=== PATIENT | female | born 1960 | race Caucasian/White ===

== ENCOUNTER 2020-03-10 09:44 | Outpatient (CLI) | payer MEDICARE, MEDICAID, SELFPAY ==
--- NOTE | 2020-03-10 10:05 | XR_ITS ---
WS: [id number] Cervical spine, 5 views, 03/10/2020 Clinical Data: RADICULOPATHY,CERVICAL REGION Comparison: None. Findings: No compression fractures are seen. The disc heights are normal. The oblique films demonstra te minimal foraminal narrowing at C4-C5 bilaterally and on the left at C5-C6. There is no prevertebra l soft tissue swelling. The odontoid is unremarkable. The soft tissues of the neck and the lung apice s are normal. XR/XR cervical spine 4-5V [id number] Impression: Minimal mid cervical foraminal narrowing.
== END 2020-03-10 09:45 | disposition home or self-care (01) ==
LOC: RAD 09:49
PROVIDERS: PCP Family Medicine; Visit Provider Family Medicine
DX: M54.12 Radiculopathy, cervical region (principal)
CPT/HCPCS: 72050

== ENCOUNTER 2020-03-18 08:34 | Outpatient (CLI) | payer MEDICARE, MEDICAID, SELFPAY ==
--- NOTE | 2020-03-18 08:45 | MR_ITS ---
WS: [id number] MRI CERVICAL SPINE NONCONTRAST TECHNIQUE: Sagittal T1, T2 and STIR imaging. Axial T2, gradient, and fiesta imaging. CLINICAL INFORMATION: CERVICAL RADICULOPATHY COMPARISON: MRI FINDINGS: Straightening of the normal cervical lordosis. No high-grade central canal narrowing. Cord signal is normal. C2-C3: Normal. C3-C4: Normal. C4-C5: Mild disc osteophytic ridging. Mild facet arthropathy. Mild left and no significant right fora david narrowing. Spinal canal is patent. C5-C6: Disc osteophyte complex with endplate ridging. Mild central canal stenosis. Moderate left and mild right bony foraminal narrowing. Mild facet arthropathy. C6-C7: Disc osteophytic ridging eccentric to the left. Moderate left and mild right foraminal narrowi ng. Mild central canal stenosis. Spinal canal is patent. Mild facet arthropathy. C7-T1: Normal Tiny central protrusions upper thoracic spine at T2-3 and T3-4. Visualized brain stem structures: Normal. Prevertebral soft tissues: Normal. MR/MR cervical spin wo con* [id number] IMPRESSION: 1. Straightening of the normal cervical lordosis. Cord signal is normal. 2. Mild disc bulging worse at C5-C6 and C6-C7 with mild central canal stenosis unchanged. 3. Moderate left C5-C6 and left C6-C7 foraminal narrowing. 4. Mild facet arthropathy in the mid cervical spine at C5-C6 worse in the left . 5. Tiny shallow central protrusions in the upper thoracic spine at T2-3 and T3 -T4. 6. No significant changes since .
== END 2020-03-18 08:35 | disposition home or self-care (01) ==
LOC: RADWPI 08:41
PROVIDERS: PCP Family Medicine; Visit Provider Family Medicine
DX: M54.12 Radiculopathy, cervical region (principal); M48.02 Spinal stenosis, cervical region; M47.892 Other spondylosis, cervical region; M50.20 Other cervical disc displacement, unspecified cervical region; M51.24 Other intervertebral disc displacement, thoracic region
CPT/HCPCS: 72141

== ENCOUNTER 2020-04-07 13:36 | Outpatient (CLI) | payer MEDICARE, MEDICAID, SELFPAY ==
--- NOTE | 2020-04-07 13:43 | XR_ITS ---
WS: [id number] LUMBAR SPINE: 3 VIEWS TECHNIQUE: AP, lateral and L5-S1 spot. HISTORY: LOW BACK PAIN, SCIATICA COMPARISON: None available. Very mild increase in the lumbar lordosis and RIGHT convex curvature. Lumbar vertebral body heights i ntact. Minimal anterolisthesis of L4 by 2 mm. No fracture. Minimal disc space narrowing at L5-S1. Dif fuse osteopenia. Facet joint arthritis is moderate at L4-5 and L5-S1. SI joints are symmetric bilaterally. No soft tissue abnormalities. Prior cholecystectomy. XR/XR lumbar spine 2-3V* [id number] IMPRESSION: 1. Mild increase in lumbar lordosis with no fracture. 2. Osteopenia. 3. Moderate facet joint arthritis at L4-5 and L5-S1.
--- NOTE | 2020-04-07 13:43 | XR_ITS ---
WS: [id number] THORACIC SPINE TECHNIQUE: AP and lateral views are performed. HISTORY: LOW BACK PAIN, SCIATICA COMPARISON: None available. Mild LEFT convex curvature mid thoracic spine. Pedicles are all identified. There is slight increase in the thoracic kyphosis. Multilevel mild disc space narrowing and endplate irregularities. No fractu res. Marginal osteophytes are most significant towards the RIGHT at T7-T9. Numerous surgical sutures are noted in the LEFT upper abdomen and also prior cholecystectomy. XR/XR thoracic spine 3V* [id number] IMPRESSION: 1. Increase in thoracic kyphosis and LEFT convex curvature. 2. Mild to moderate spondylosis, most significant from T7 to T9. No fracture.
== END 2020-04-07 13:37 | disposition home or self-care (01) ==
LOC: WPI 13:39
PROVIDERS: PCP Family Medicine; Visit Provider Family Medicine
DX: M54.30 Sciatica, unspecified side (principal); M40.204 Unspecified kyphosis, thoracic region; M47.814 Spondylosis without myelopathy or radiculopathy, thoracic region; M85.88 Other specified disorders of bone density and structure, other site; M47.816 Spondylosis without myelopathy or radiculopathy, lumbar region; M47.817 Spondylosis without myelopathy or radiculopathy, lumbosacral region
CPT/HCPCS: 72072; 72100

== ENCOUNTER → 2020-05-02 09:30 | Outpatient (BNVA) | payer MEDICARE, MEDICAID, SELFPAY | PROVIDERS: PCP Family Medicine; Referring Provider Family Medicine; Visit Provider Anesthesiology Pain Medicine | DX: G89.29 Other chronic pain (principal); G56.20 Lesion of ulnar nerve, unspecified upper limb; M54.2 Cervicalgia; M54.9 Dorsalgia, unspecified; M19.011 Primary osteoarthritis, right shoulder; F17.210 Nicotine dependence, cigarettes, uncomplicated | CPT/HCPCS: 99205 ==

== ENCOUNTER 2020-06-03 14:30 | Outpatient (CLI) | payer MEDICARE, MEDICAID, SELFPAY ==
--- NOTE | 2020-06-03 15:15 | MR_ITS ---
WS: [id number] MRI RIGHT SHOULDER NONCONTRAST TECHNIQUE: Sagittal T2, coronal T1, T2 and proton density imaging. Axial gradient PDE imaging. CLINICAL INFORMATION: M12.819 - Other specific arthropathies, not elsewhere classified, unspecified s [place] COMPARISON: None. FINDINGS: Moderate degenerative arthritis at the AC joint. Mild edema. Mild downsloping acromion. Slight subacr omial spurring. Tendinopathy in the distal supraspinatus. Chronic thinning of the supraspinatus and i nfraspinatus. Tiny intrasubstance tear in the distal supraspinatus near the insertion. No full-thickn ess rotator cuff tears. Normal subscapularis. Normal teres minor. Biceps tendon is not visualized in the bicipital groove and likely chronically torn. Degenerative fraying of the glenoid labrum. Moderate degenerative narrowing glenohumeral joint. Degen erative changes at the greater tuberosity. MR/MR shoulder RT wo con* [id number] IMPRESSION: 1. Moderate degenerative arthritis at the AC joint with mild downsloping acrom ion. Mild edema at the AC joint. 2. Chronic thinning of the distal infraspinatus and supraspinatus. 3. Tendinopathy in the distal supraspinatus with a small intrasubstance tear d istally near the insertion. 4. No full-thickness rotator cuff tears. 5. Absent biceps tendon in the bicipital groove presumably chronically torn. 6. Degenerative fraying of the glenoid labrum.
== END 2020-06-03 14:31 | disposition home or self-care (01) ==
LOC: RADSHAW 14:34
PROVIDERS: PCP Family Medicine; Visit Provider Anesthesiology Pain Medicine
DX: M19.011 Primary osteoarthritis, right shoulder (principal); R60.1 Generalized edema; M62.89 Other specified disorders of muscle
CPT/HCPCS: 73221

== ENCOUNTER → 2020-06-09 10:09 | Outpatient (BNVA) | payer MEDICARE, MEDICAID, SELFPAY | PROVIDERS: PCP Family Medicine; Visit Provider Anesthesiology Pain Medicine | DX: G89.29 Other chronic pain (principal); M54.41 Lumbago with sciatica, right side; M54.2 Cervicalgia; G56.21 Lesion of ulnar nerve, right upper limb; M19.011 Primary osteoarthritis, right shoulder; M54.9 Dorsalgia, unspecified | CPT/HCPCS: 99214 ==

== ENCOUNTER → 2020-08-19 09:10 | Outpatient (BNVA) | payer MEDICARE, MEDICAID, SELFPAY | PROVIDERS: PCP Family Medicine; Visit Provider Anesthesiology Pain Medicine | DX: G89.29 Other chronic pain (principal); M79.18 Myalgia, other site; M54.2 Cervicalgia; M19.011 Primary osteoarthritis, right shoulder; M54.9 Dorsalgia, unspecified; G56.20 Lesion of ulnar nerve, unspecified upper limb | CPT/HCPCS: 20553; 99214; J1030; J3490 ==

== ENCOUNTER → 2020-09-09 08:03 | Outpatient (BNVA) | payer MEDICARE, MEDICAID, SELFPAY | PROVIDERS: PCP Family Medicine; Visit Provider Anesthesiology Pain Medicine | DX: G89.29 Other chronic pain (principal); M79.18 Myalgia, other site; M54.2 Cervicalgia; M19.019 Primary osteoarthritis, unspecified shoulder; M54.9 Dorsalgia, unspecified; G56.20 Lesion of ulnar nerve, unspecified upper limb | CPT/HCPCS: 20553; 99214 ==

== ENCOUNTER → 2020-09-26 14:27 | Outpatient (BNVA) | payer MEDICARE, MEDICAID, SELFPAY | PROVIDERS: PCP Family Medicine; Referring Provider Anesthesiology Pain Medicine; Visit Provider Specialist | DX: M19.011 Primary osteoarthritis, right shoulder (principal) | CPT/HCPCS: 73030 ==

== ENCOUNTER → 2020-10-13 08:45 | Outpatient (BNVA) | payer MEDICARE, MEDICAID, SELFPAY | PROVIDERS: PCP Family Medicine; Visit Provider Anesthesiology Pain Medicine | DX: G89.29 Other chronic pain (principal); M54.9 Dorsalgia, unspecified; M54.2 Cervicalgia; M19.011 Primary osteoarthritis, right shoulder; G56.20 Lesion of ulnar nerve, unspecified upper limb | CPT/HCPCS: 99214 ==

== ENCOUNTER 2020-11-04 08:28 | Outpatient (CLI) | payer MEDICARE, MEDICAID, SELFPAY ==
--- NOTE | 2020-11-04 08:42 | XR_ITS ---
WS: [id number] Right foot, 3 views, 11/04/2020 Clinical Data: UNSPECIFIED FX BROKEN TOE/CLOSED FX Comparison: None. Findings: There is a fracture of the distal aspect of the right fourth toe proximal phalanx. No displacement is seen. No bone destruction or erosion is noted. The joint spaces and soft tissues are normal. XR/XR foot RT min 3V* [id number] Impression: Probable fracture of distal portion of right fourth toe proximal phalanx.
== END 2020-11-04 08:29 | disposition home or self-care (01) ==
PROVIDERS: PCP Family Medicine; Visit Provider Family Medicine
DX: S92.911A Unspecified fracture of right toe(s), initial encounter for closed fracture (principal); X58.XXXA Exposure to other specified factors, initial encounter
CPT/HCPCS: 73630

== ENCOUNTER 2021-01-24 11:05 | Outpatient (CLI) | payer MEDICARE, MEDICAID, SELFPAY ==
[2021-01-24 12:06] VITALS: BMI 37.3
--- NOTE | 2021-01-24 12:18 | ECG_ITS ---
[facility] Test Date: 2021-01-24 Pat Name: Kris Arana Department: Room: Gender: Female Dog Breeder: : 1960 Requested By: Anna Brewster Order Number: [id number] Socrates MD: ANNA BREWSTER Interpretive Statements NAME OF STUDY: TREADMILL STRESS TEST INDICATION: Conduction Disorder FOR CHRONOTROPIC INCOMPETENCE; MAXIMAL EFFORT OBTAINED DUE TO SHORTNESS OF BREATH AND LEG FATIGE HAD TO ABORT EXERCISE DATA: The patient was exercised by Hammad protocol. Baseline heart rate was 48 beats per minute. Baseline blood pressure was 131/66 millimeters of mercury. Target heart rate was 159 beats per minute. Maximum heart rate achieved was 99, which was 62 % of the target heart rate. Maximum blood pressure was 210/83 millimeters of mercury. Total exercise time was 3-minute. Maximum METs achieved was 4.6, maximum VO2 was 16.1. The reason for ending the test was due to maximal effort achieved. The patient complained of fatigue and shortness of during the stress test, which then resolved at the end of the test. ELECTROCARDIOGRAM: BASELINE: Sinus bradycardia, normal axis, interventricular conduction delay, no significant ST-T changes at the baseline noted. EXERCISE: At the peak exercise level, no significant ST-T changes suggestive of ischemia noted. RECOVERY: During the recovery period, heart rate dropped appropriately. No significant ST-T changes in the recovery suggestive of ischemia noted. CONCLUSION: 1. Exercise capacity poor. 2. Heart rate response was not appropriate. 3. Blood pressure response was hypertension. 4. Symptoms not suggestive of ischemia. 5. Electrocardiogram portion of the stress test was not suggestive of ischemia. 6. Nuclear scan will be documented separately. Please note that due to under achievement of METs, low exercise capacity and submaximal heart rate specificity and sensitivity of the EKG portion of stress test will be low and not reliable Electronically Signed On 01-24-2021 20:31:38 CDT by ANNA BREWSTER [email or web address]
[2021-01-24 13:30] VITALS: BP 136/84; PULSE 54
== END 2021-01-24 11:06 | disposition home or self-care (01) ==
LOC: CDL 11:08
PROVIDERS: PCP Family Medicine; Visit Provider Internal Medicine Cardiovascular Disease
DX: I45.9 Conduction disorder, unspecified (principal)
CPT/HCPCS: 93017

== ENCOUNTER → 2021-04-25 09:37 | Outpatient (BNVA) | payer MEDICARE, MEDICAID, SELFPAY | PROVIDERS: PCP Family Medicine; Visit Provider Anesthesiology Pain Medicine | DX: G89.29 Other chronic pain (principal); M54.2 Cervicalgia; M19.011 Primary osteoarthritis, right shoulder; G56.23 Lesion of ulnar nerve, bilateral upper limbs; F17.210 Nicotine dependence, cigarettes, uncomplicated | CPT/HCPCS: 99214 ==

== ENCOUNTER → 2021-05-02 14:00 | Day surgery (SDC) | payer MEDICARE, MEDICAID, SELFPAY ==
[2021-05-02 14:15] VITALS: BP 131/62; PULSE 59; RESP 18; TEMP 36.3; O2SAT 97
[2021-05-02] MEDS: ferric carboxy (IVPB) 750 MG in sodium chloride 0.9% (100 ml) 100 ML 345 MG IV (14:37)
== END ==
PROVIDERS: PCP Family Medicine; Visit Provider Family Medicine
DX: E61.1 Iron deficiency (principal)
CPT/HCPCS: 96365; J1439

== ENCOUNTER → 2021-05-09 06:31 | Day surgery (SDC) | payer MEDICARE, MEDICAID, SELFPAY ==
[2021-05-09 06:40] VITALS: BP 118/52; PULSE 45; RESP 18; TEMP 36.2; O2SAT 98; BMI 36.9
[2021-05-09] MEDS: ferric carboxy (IVPB) 750 MG in sodium chloride 0.9% (100 ml) 100 ML 300 MG IV (06:52)
== END ==
PROVIDERS: PCP Family Medicine; Visit Provider Family Medicine
DX: E61.1 Iron deficiency (principal)
CPT/HCPCS: 96365; J1439

== ENCOUNTER 2021-11-07 09:23 | Outpatient (CLI) | payer MEDICARE, MEDICAID, SELFPAY ==
--- NOTE | 2021-11-07 09:38 | MM_ITS ---
WS: [id number] BILATERAL DIAGNOSTIC DIGITAL BREAST TOMOSYNTHESIS MAMMOGRAM WITH CAD HISTORY: HX OF BREAST CA COMPARISON: 09/28/2014, 02/22/2017 Bilateral CC and MLO views with tomosynthesis and synthetic mammography submitted. Computer aided det ection analyzed. Breast composition: There are scattered areas of fibroglandular density. No suspicious masses, microc alcifications or architectural distortion. No change in appearance of the breasts since the prior marisol dies. There is mild volume loss and scarring in the anterior RIGHT breast. Biopsy clip upper outer qu adrant LEFT breast. No recurrent mass or calcifications. MM/[place] [id number] IMPRESSION: BI-RADS: 2-Benign FOLLOW UP: 1 Year Follow-up
== END 2021-11-07 09:24 | disposition home or self-care (01) ==
LOC: RADSHAW 09:25
PROVIDERS: PCP Family Medicine; Visit Provider Family Medicine
DX: Z85.3 Personal history of malignant neoplasm of breast (principal)
CPT/HCPCS: 77062

== ENCOUNTER → 2021-11-14 11:27 | Outpatient (BNVA) | payer MEDICARE, MEDICAID, SELFPAY | PROVIDERS: PCP Family Medicine; Visit Provider Internal Medicine Cardiovascular Disease | DX: R00.1 Bradycardia, unspecified (principal); I95.1 Orthostatic hypotension; R42 Dizziness and giddiness; I47.1 Supraventricular tachycardia; F17.200 Nicotine dependence, unspecified, uncomplicated | CPT/HCPCS: 93005; 99214 ==

== ENCOUNTER → 2021-11-28 12:53 | Outpatient (BNVA) | payer MEDICARE, MEDICAID, SELFPAY | PROVIDERS: PCP Family Medicine; Visit Provider Internal Medicine Cardiovascular Disease | DX: R55 Syncope and collapse (principal); R00.1 Bradycardia, unspecified | CPT/HCPCS: 93229 ==

== ENCOUNTER → 2022-01-25 14:02 | Outpatient (BNVA) | payer MEDICARE, MEDICAID, SELFPAY | PROVIDERS: PCP Family Medicine; Visit Provider Internal Medicine Cardiovascular Disease | DX: R00.1 Bradycardia, unspecified (principal); I95.0 Idiopathic hypotension; R42 Dizziness and giddiness; E03.9 Hypothyroidism, unspecified; F17.200 Nicotine dependence, unspecified, uncomplicated; I95.1 Orthostatic hypotension | CPT/HCPCS: 99214 ==

== ENCOUNTER 2022-05-04 13:01 | Outpatient (CLI) | payer MEDICARE, MEDICAID, SELFPAY ==
--- NOTE | 2022-05-04 13:00 | USCV_ITS ---
Kris Arana Age: 61 Gender: F : 1960 Exam Date: 05/04/2022 13:14 Ordering Phys: Latanya Pearson MD ([email or web address]) Technologist: Cuca Maharaj Exam Location: [facility] [place] Indication: Pre op in 3 days BP: 120 / 62 HR: 58 Rhythm: Sinus Technical Quality: Adequate MEASUREMENTS (Male / Female) Normal Values 2D ECHO LV Diastolic Diameter PLAX 4.2 cm 4.2 - 5.9 / 3.9 - 5.3 cm LV Systolic Diameter PLAX 2.1 cm IVS Diastolic Thickness 1.3 cm 0.6 - 1.0 / 0.6 - 0.9 cm IVS Systolic Thickness 1.8 cm LVPW Diastolic Thickness 1.0 cm 0.6 - 1.0 / 0.6 - 0.9 cm LVPW Systolic Thickness 1.4 cm LVOT Diameter 2.1 cm LV Ejection Fraction 2D Teich 80.7 % LV Ejection Fraction MOD 2C 72.4 % LV Ejection Fraction 2C AL 73.5 % LA Diameter 3.2 cm LA Width 4.0 cm LA Height 5.8 cm RA Width 3.3 cm RA Height 5.0 cm Aorta at Sinotubular Diameter 2.9 cm IVC Diameter 2.1 cm M-MODE MV E Point Septal Separation 0.2 cm DOPPLER AV Peak Velocity 180.0 cm/s LVOT Peak Velocity 135.0 cm/s AV Area Cont Eq vti 2.9 cm squared AV Area Cont Eq pk 2.5 cm squared MV Peak Velocity 113.0 cm/s MV Area PHT 2.0 cm squared Mitral E to A Ratio 0.6 MV E' Velocity 34.0 cm/s Mitral E to MV E' Ratio 4.4 Mitral E to LV E' Lateral Ratio 3.9 Mitral E to LV E' Septal Ratio 5.1 TR Peak Velocity 182.8 cm/s TR Peak Gradient 13.4 mmHg Right Atrial Pressure 3.0 mmHg Pulmonary Artery Systolic Pressu 16.4 mmHg PV Peak Velocity 108.0 cm/s RV Acceleration Time 0.1 s RV Ejection Time 0.3 s RV AcT/ET 0.2 FINDINGS Left Ventricle Normal left ventricular size and systolic function, EF 74 %. No regional wall motion abnormalities. Grade I/IV diastolic dysfunction (abnormal relaxation filling pattern), normal to mildly elevated filling pressures. Mild left ventricular hypertrophy. Right Ventricle The right ventricle is normal in size and function. Right Atrium The right atrium is normal in size. Left Atrium The left atrium is normal in size. Mitral Valve No gross abnormalities noted Aortic Valve No gross abnormalities noted Tricuspid Valve No gross abnormalities noted Pulmonic Valve Pulmonic valve not well visualized. Pericardium Normal pericardium without effusion. Aorta Normal ascending aorta dimension. IVC The inferior vena cava appears normal. CONCLUSIONS Normal left ventricular size and systolic function, EF 74 %. No regional wall motion abnormalities. Grade I/IV diastolic dysfunction (abnormal relaxation filling pattern), normal to mildly elevated filling pressures. Mild left ventricular hypertrophy. Normal cardiac chamber sizes. No significant stenotic or regurgitant lesions There is no pericardial effusion. There are no intracardiac masses. No similar previous studies are available for comparison Dr Latanya Pearson MD FACC (Electronically Signed) Final Date: 04 May 2022 18:37 S
== END 2022-05-04 13:02 | disposition home or self-care (01) ==
LOC: RAD 13:02
PROVIDERS: PCP Family Medicine; Visit Provider Internal Medicine Cardiovascular Disease
DX: I95.1 Orthostatic hypotension (principal); R42 Dizziness and giddiness; R06.09 Other forms of dyspnea; Z95.0 Presence of cardiac pacemaker
CPT/HCPCS: 80048; 85025; 85610; 86850; 86900; 93306; 99214

== ENCOUNTER 2022-05-07 06:09 | Outpatient (CLI) | payer MEDICARE, MEDICAID, SELFPAY ==
--- NOTE | 2022-05-07 06:43 | XRR_ITS ---
PROCEDURE INFORMATION: Exam: XR Chest Exam date and time: 05/07/2022 6:33 AM Age: 61 years old Clinical indication: Pre-operative exam; Cardiovascular screening and respiratory screening exam; Additional info: Pre pacemaker insertion TECHNIQUE: Imaging protocol: Radiologic exam of the chest. Views: 2 views. COMPARISON: CR XR chest 1V [id number] 07/17/2016 8:41 PM FINDINGS: Lungs: Unremarkable. No consolidation. Pleural spaces: Unremarkable. No pleural effusion. No pneumothorax. Heart/Mediastinum: Unremarkable. No cardiomegaly. Bones/joints: Unremarkable. XR/XR chest 2V* [id number] IMPRESSION: No acute findings.
[2022-05-07 06:56] VITALS: BP 120/65; PULSE 49; RESP 16; TEMP 37.1; O2SAT 98; BMI 36.8
--- NOTE | 2022-05-07 06:59 | SUR.PREOP ---
Patient has MS. She states that most days she gets around independently. When she has an MS flare up she has to use a cane, walker or wheelchair depending on the severity of the flare up. She ambulated into the hospital independently this AM with no asist devices.
--- NOTE | 2022-05-07 07:05 | P.HPUD_ITS ---
Surgery/Procedure H&P Update DATE OF PROCEDURE: May 07, 2022 DATE H&P PERFORMED: 05/03/22 H&P UPDATE INFORMATION: I have reviewed H&P completed within last 30 days, I have examined patient prior to procedure and No changes to prior documentation PREOP DIAGNOSIS: symptomatic bradycardia/ sinus node dysfunction PRIMARY INDICATION FOR PROCEDURE: episodes of syncope/ near syncope PLANNED PROCEDURE: Operation Date: 05/07/22 07:00 Proposed Procedures p Pacemaker Insertion 99105,R00.1(Not Applicable) - Latanya Pearson MD PATIENT REASSESSED PRIOR TO SEDATION, WITH NO CHANGE NOTED: Yes PHYSICAL EXAM: alert, oriented x 3, clear to auscultation bilaterally and r egular rate & rhythm AIRWAY EVAL/ANESTHESIA PLAN: normal airway, see other exam findings, ASA II, Monitored Anesthesia, Local Anesthesia, Risks, benefits & alternatives of mary tion and/or procedure discussed and Patient agrees to continue as planned
--- NOTE | 2022-05-07 09:50 | PM.OP ---
Operative Report Date of procedure: May 07, 2022 Pre-op diagnosis: Preop Diagnosis symptomatic bradycardia/ sinus node dysfunction Procedure: LOCATION: Outpatient PREOPERATIVE DIAGNOSES: Symptomatic bradycardia/sinus manuel dysfunction POSTOPERATIVE DIAGNOSES: Same. COMPLICATIONS: None. ESTIMATED BLOOD LOSS: Around 5 milliliters. BRIEF HISTORY: 61-year-old white female with a history of palpitation, near syncopal and syncopal episodes was found to have episodes of symptomatic sinus bradycardia on the monitor with a heart rate in the 40s. Her features are consistent with a sinus manuel dysfunction. For further management of her condition, a permanent pacemaker implantation was recommended. A dual chamber permanent pacemaker implantation was recommended for AV synchrony and symptom relief The procedure was explained to the patient in detail with the risks and benefits. The risks of bleeding, hematoma, vascular injury, infection, pneumothorax, myocardial perforation and other concomitant complications were explained in detail, which the patient understood well and consented to proceed. PROCEDURE DESCRIPTION: The patient was brought to the Cardiac Catheterization Lab. The left and the right side of the neck and the subclavian area were cleaned and draped in a sterile fashion. 1% Xylocaine was used as the local anesthetic agent. Left subclavian venogram was performed by injecting 20 milliliters of Omnipaque through the left antecubital vein. A left subclavian venous access was obtained using a micropuncture needle system, under venographic guidance. . A two-inch long incision was made 2.0 centimeters below the midclavicular region. By sharp and blunt dissection, a pacemaker pocket was made. A second venous access was obtained using another micropuncture needle system. Over the first guidewire, a 7-Thai venous sheath with dilator was advanced. The venous dilator and the guidewire were taken out. A screw-in ventricular lead was advanced through the venous sheath and was positioned towards the right ventricle. Under fluoroscopic guidance, the ventricular lead was positioned toward the right ventricular apex. Good pacing and sensing thresholds were obtained. The lead was secured to the endocardium by advancing the helix. The stability of the lead was tested by gentle twisting movements and also by asking the patient to take some deep breaths and cough. The venous sheath was peeled off, at this time. The lead was secured to the pectoralis fascia, by suturing with 1-0 Surgilon. Over the second guidewire, another 7-Thai venous sheath with dilator was advanced. The dilator and the guidewire were taken out. Under fluoroscopic guidance, an atrial lead (Medtronic), was advanced and positioned toward the right atrium. The lead was positioned in the right atrial appendage. Good pacing and sensing thresholds were obtained. The lead was secured to the endocardium by advancing the helix. Stability of the lead was tested by gentle twisting movements and also by asking the patient to take some deep breaths and cough. The venous sheath was peeled off, at this time. The lead was secured to the pectoralis fascia by suturing with 0-Surgilon. The pacemaker pocket was copiously irrigated with vancomycin solution. Complete hemostasis was achieved. Sponge counts were confirmed. The leads were attached to a Medtronic generator. The leads were positioned behind the generator and the generator was attached to the pectoralis fascia by suturing with 0-Surgilon. The pocket was closed in layers. Skin was approximated using 4-0 Vicryl. IMPLANTED DEVICES: ATRIAL LEAD: Model number: 5076/45 Serial number: [id number] Make: Medtronic VENTRICULAR LEAD: Model number: 5076/52 Serial number: [id number] Make: Medtronic GENERATOR Brand: [place] XT DR MRI Surescan Model number: W1 DR 01 Serial number: [id number] Make: Medtronic IMPLANTATION DATA: With the pacing system analyzer, the R wave sensing was 9.8 millivolts with a lead impedance of 722 and a pacing threshold was volts at 0.4 milliseconds. In the atrium, the sensing was 1.8 millivolts with a lead impedance of 456 ohms and a pacing threshold was 0.75 volts at 0.4 milliseconds. Through the device, the R-wave sensing was 12.1 millivolts with a lead impedance of 703 and a pacing threshold was 0.5 volts at 0.4 milliseconds. The atrial sensing was 2.4 millivolts with a lead impedance of 475 ohms and a pacing threshold of 0.75 volts at 0.4 milliseconds. The pacemaker was set for AAIR/DDDR mode with upper rate of 130 and a lower rate of 60. A pressure dressing was applied over the pacemaker site. The patient was transferred to the Medical Floor in stable condition. A chest x-ray was ordered to confirm the lead position and also to rule out any pneumothorax.
[2022-05-07 11:29] VITALS: BP 116/60; PULSE 61; RESP 15; TEMP 36.6; O2SAT 93
[2022-05-07] MEDS: levothyroxine 100 mcg Tablet PO (12:33)
[2022-05-07] MEDS: aspirin 81 mg EC Tablet PO (12:34)
[2022-05-07] MEDS: acyclovir 400 mg Tablet PO (12:34)
--- NOTE | 2022-05-07 15:00 | XRR_ITS ---
PROCEDURE INFORMATION: Exam: XR Chest Exam date and time: 05/07/2022 4:05 PM Age: 61 years old Clinical indication: Device placement; Cardiac pacemaker placement or adjustment; Prior surgery; Additional info: Post permanent pacemaker placement; Visualize lead tip TECHNIQUE: Imaging protocol: Radiologic exam of the chest. Views: 1 view. COMPARISON: CR XR chest 2V* [id number] 05/07/2022 6:33 AM FINDINGS: Tubes, catheters and devices: Two lead pacer device noted in the left chest wall. Lungs: Unremarkable. No consolidation. Pleural spaces: Unremarkable. No pleural effusion. No pneumothorax. Heart/Mediastinum: Unremarkable. No cardiomegaly. Bones/joints: Unremarkable. XR/XR chest 1V [id number] IMPRESSION: No acute findings.
[2022-05-07 15:46] VITALS: BP 110/66; PULSE 63; RESP 15; TEMP 36.8; O2SAT 93
[2022-05-07] MEDS: ceFAZolin 2,000 MG in sodium chloride 0.9% (plus) 50 ML 100 MG IV ×2 (16:15→23:08)
[2022-05-07 20:00] VITALS: BP 110/72; PULSE 108; RESP 18; TEMP 36.5; O2SAT 94
[2022-05-07] MEDS: sodium chloride 0.9% 1,000 ML 75 ML IV (20:45)
[2022-05-07 22:46] VITALS: PULSE 64
[2022-05-08 04:00] VITALS: BP 115/70; PULSE 59; RESP 17; TEMP 36.7; O2SAT 91
[2022-05-08 05:11] VITALS: PULSE 60
--- NOTE | 2022-05-08 06:00 | ECG_ITS ---
[facility] Test Date: 2022-05-08 Pat Name: Kris Arana Department: Room: 275 Gender: Female Manager Gallery: : 1960 Requested By: Latanya Pearson Order Number: [id number] Socrates MD: Latanya Pearson M.D. Measurements Intervals [place] Rate: 60 P: 262 NM: 197 QRS: 11 QRSD: 99 T: 35 QT: 415 QTc: 415 Interpretive Statements ELECTRONIC ATRIAL PACEMAKER LOW QRS VOLTAGE IN PRECORDIAL LEADS [QRS DEFLECTION < 1.0 mV IN CHEST LEADS] ABNORMAL RHYTHM ECG Compared to ECG 07/17/2016 22:25:14 Sinus bradycardia no longer present Electronically Signed On 05-08-2022 21:05:31 CHEMICAL PLANT MANAGER by Latanya Pearson M.D. [email or web address]
[2022-05-08] MEDS: ceFAZolin 2,000 MG in sodium chloride 0.9% (plus) 50 ML 100 MG IV (06:10)
[2022-05-08] MEDS: sodium chloride 0.9% 1,000 ML 75 ML IV (06:12)
[2022-05-08] MEDS: aspirin 325 mg Tablet PO (06:43)
[2022-05-08] MEDS: acetaminophen 325 mg Tablet PO (06:43)
[2022-05-08 07:46] VITALS: BP 117/82; PULSE 61; RESP 16; TEMP 36.7; O2SAT 94
[2022-05-08] MEDS: acyclovir 400 mg Tablet PO (10:06)
[2022-05-08] MEDS: levothyroxine 100 mcg Tablet PO (10:06)
== END 2022-05-08 12:07 | disposition home or self-care (01) ==
LOC: CCL 09:45 → MEDSURG 16:12
PROVIDERS: PCP Family Medicine; Visit Provider Internal Medicine Cardiovascular Disease
DX: I49.5 Sick sinus syndrome (principal); Z79.82 Long term (current) use of aspirin; I95.9 Hypotension, unspecified; Z85.3 Personal history of malignant neoplasm of breast; Z85.01 Personal history of malignant neoplasm of esophagus; Z87.891 Personal history of nicotine dependence
CPT/HCPCS: 33208; 36415; 71045; 71046; 93005; 96360; 96361; 97165; 99152; 99153; C1769; C1779; C1786; C1894; J0690; J2250; J3010; J3370; J7030; J7050; J8499; Q9967

== ENCOUNTER → 2022-05-16 14:54 | Outpatient (BNVA) | payer MEDICARE, MEDICAID, SELFPAY | PROVIDERS: PCP Family Medicine; Visit Provider Nurse Practitioner Family | DX: I49.5 Sick sinus syndrome (principal); Z95.0 Presence of cardiac pacemaker | CPT/HCPCS: 99213 ==

== ENCOUNTER → 2022-06-15 08:04 | Outpatient (BNVA) | payer MEDICARE, MEDICAID, SELFPAY | PROVIDERS: PCP Family Medicine; Visit Provider Internal Medicine Cardiovascular Disease | DX: Z45.010 Encounter for checking and testing of cardiac pacemaker pulse generator [battery] (principal) | CPT/HCPCS: 93280 ==